=== PATIENT | male | born 1955 | race Caucasian/White ===

== ENCOUNTER 2016-09-24 15:34 | Emergency (ER) | payer OTHER ==
[~2016-09-24] VITALS: Ht 182.9 cm; Wt 120.4 kg
[~2016-09-24 15:34] MED LIST: ADULT LOW DOSE81 M1 PO; CELEBREX200 MG PO; COZAAR100 MG PO; CRESTOR5 MG PO; IBUPROFEN400 MG PO; LOPID600 MG PO; NIASPAN500 MG PO; PERCOCET 5/31 TABLET PO; TRICOR145 MG PO; bp med
[2016-09-24] MEDS ORDERED: VIBRAMYCIN100 MG PO (16:23)
[2016-09-24] MEDS ORDERED: MOTRIN800 MG PO (16:23)
[2016-09-24] MEDS ORDERED: LEVAQUIN500 MG PO (16:25)
[2016-09-24 17:18] VITALS: BP 132/102
== END 2016-09-24 17:19 | disposition home or self-care (01) ==
LOC: EME 15:34
DX: S50.851A Superficial foreign body of right forearm, initial encounter (principal); W45.8XXA Other foreign body or object entering through skin, initial encounter; Y93.H9 Activity, other involving exterior property and land maintenance, building and construction; Z23 Encounter for immunization; I10 Essential (primary) hypertension; E11.9 Type 2 diabetes mellitus without complications
CPT/HCPCS: 73090; 99281; 99283

== ENCOUNTER 2017-08-25 17:20 | Emergency (ER) | payer OTHER ==
[~2017-08-25] VITALS: Ht 188 cm; Wt 119.1 kg
[~2017-08-25 17:20] MED LIST changes: +LEVAQUIN500 MG PO; +MOTRIN800 MG PO; +VIBRAMYCIN100 MG PO
[2017-08-25] MEDS ORDERED: AUGMENTIN875 MG PO (20:44)
[2017-08-25 21:18] VITALS: BP 154/101
== END 2017-08-25 21:19 | disposition home or self-care (01) ==
LOC: EXP 17:20 → EME 17:20 → EXP 21:19
PROC: 0HQGXZZ Repair Left Hand Skin, External Approach (ICD-10-PCS; principal; 2017-08-25)
DX: S61.213A Laceration without foreign body of left middle finger without damage to nail, initial encounter (principal); W54.0XXA Bitten by dog, initial encounter
CPT/HCPCS: 73130; 99281; 99285; S0020

== ENCOUNTER 2017-09-13 10:02 | Emergency (ER) | payer OTHER ==
[~2017-09-13] VITALS: Ht 182.9 cm; Wt 120.0 kg
[~2017-09-13 10:02] MED LIST changes: +AUGMENTIN875 MG PO
[2017-09-13 10:52] LABS: APPEARANCE CLEAR ((CLEAR)); BILIRUBIN NEGATIVE; BLOOD LARGE; COLOR YELLOW ((YELLOW)); GLUCOSE (STRIP) NEGATIVE; KETONES NEGATIVE; LEUKOCYTES NEGATIVE; NITRITE NEGATIVE; PROTEIN (STRIP) NEGATIVE; SPECIFIC GRAVITY 1.019 (1.000-1.030); UROBILINOGEN 0.2 MG/DL (0.2-1.0)
[2017-09-13 11:06] LABS: BACTERIA NONE SEEN /HPF; EPITHELIAL CELLS RARE /HPF; MUCUS NONE SEEN /LPF; UCUL ADDED? NO; WHITE BLOOD CELLS 0-5 /HPF (0-5)
[2017-09-13 11:10] LABS: HEMOGLOBIN 14.5 G/DL (12.5-16.6); MCH 30.8 PG (29.0-34.0); MCHC 36.3 G/DL (30.0-36.0); MCV 84.9 FL (86-99); PLATELET COUNT 215 K/uL (156-360); RBC DIS.WIDTH-CV 12.6 % (11.8-14.6); RBC DIS.WIDTH-SD 38.6 % (39-53); RED BLOOD COUNT 4.71 M/uL (4.00-5.50); WHITE BLOOD COUNT 8.8 K/uL (4.1-10.2)
[2017-09-13 11:21] LABS: CHLORIDE 109 mEq/L (99-109); POTASSIUM 3.9 mEq/L (3.7-5.4); SODIUM 138 mEq/L (136-147)
[2017-09-13 11:22] LABS: GLUCOSE 194 mg/dL (70-99)
[2017-09-13 11:26] LABS: GFR ESTIMATE (CALCULATED) > 59 mL/min/ (58.99-99999)
[2017-09-13 11:27] LABS: UREA NITROGEN (BUN) 17 mg/dL (9-23)
[2017-09-13] MEDS ORDERED: ZOFRAN ODT8 MG PO (15:02)
[2017-09-13] MEDS ORDERED: FLOMAX0.4 MG PO (15:02)
[2017-09-13] MEDS ORDERED: NORCO 5/3251 TABLET PO (15:02)
[2017-09-13 15:12] VITALS: BP 143/100
== END 2017-09-13 15:18 | disposition home or self-care (01) ==
LOC: EME 10:02
DX: N20.0 Calculus of kidney (principal); N13.30 Unspecified hydronephrosis; N50.812 Left testicular pain; K76.0 Fatty (change of) liver, not elsewhere classified; I10 Essential (primary) hypertension; E78.5 Hyperlipidemia, unspecified; Z79.82 Long term (current) use of aspirin
CPT/HCPCS: 74176; 80048; 81003; 85027; 99281; 99284; J1885

== ENCOUNTER 2017-10-13 17:47 | Inpatient (IN) | payer OTHER ==
[~2017-10-13] VITALS: Ht 182.9 cm; Wt 117.9 kg
[~2017-10-13 17:47] MED LIST changes: +FENOFIBRATE160 M1 PO; +FLOMAX0.4 MG PO; +NORCO 5/3251 TABLET PO; -TRICOR145 MG PO; +ZOFRAN ODT8 MG PO
[2017-10-13 19:05] LABS: HEMATOCRIT 39.7 % (38.0-50.0); HEMOGLOBIN 14.2 G/DL (12.5-16.6); MCH 30.6 PG (29.0-34.0); MCHC 35.8 G/DL (30.0-36.0); MCV 85.6 FL (86-99); PLATELET COUNT 242 K/uL (156-360); RBC DIS.WIDTH-CV 13.1 % (11.8-14.6); RBC DIS.WIDTH-SD 40.5 % (39-53); RED BLOOD COUNT 4.64 M/uL (4.00-5.50); WHITE BLOOD COUNT 12.4 K/uL (4.1-10.2)
[2017-10-13 19:18] LABS: ALBUMIN 4.7 g/dL (3.2-4.8); CHLORIDE 105 mEq/L (99-109); POTASSIUM 3.7 mEq/L (3.7-5.4); SODIUM 143 mEq/L (136-147)
[2017-10-13 19:21] LABS: GLUCOSE 181 mg/dL (70-99); TOTAL PROTEIN 7.8 g/dL (6.4-8.3)
[2017-10-13 19:23] LABS: TOTAL BILIRUBIN 0.8 mg/dL (0.0-1.0)
[2017-10-13 19:24] LABS: ALKALINE PHOSPHATASE 62 IU/L (3-129); CREATININE 1.5 mg/dL (0.6-1.3); GFR ESTIMATE (CALCULATED) 51 mL/min/ (58.99-99999)
[2017-10-13 19:25] LABS: UREA NITROGEN (BUN) 17 mg/dL (9-23)
[2017-10-13 19:26] LABS: AST (GOT) 20 IU/L (2-34)
[2017-10-13 19:27] LABS: ALT (GPT) 26 IU/L (3-49)
[2017-10-13 19:28] LABS: LIPASE 36 U/L (1.0-51.0)
[2017-10-13 19:40] LABS: APPEARANCE SL.HAZY ((CLEAR)); BILIRUBIN NEGATIVE; BLOOD MODERATE; COLOR YELLOW ((YELLOW)); GLUCOSE (STRIP) 50; KETONES NEGATIVE; LEUKOCYTES NEGATIVE; NITRITE NEGATIVE; PROTEIN (STRIP) 30; SPECIFIC GRAVITY 1.023 (1.000-1.030); UROBILINOGEN 0.2 MG/DL (0.2-1.0)
[2017-10-13 19:44] LABS: BACTERIA RARE /HPF; EPITHELIAL CELLS RARE /HPF; MUCUS TRACE /LPF; RED BLOOD CELLS TNTC /HPF (0-5); UCUL ADDED? YES; WHITE BLOOD CELLS 0-5 /HPF (0-5)
[2017-10-14] MEDS ORDERED: AMARYL4 MG PO (00:20)
[2017-10-14] MEDS ORDERED: JANUVIA100 MG PO (00:20)
[2017-10-14] MEDS ORDERED: ATORVASTATIN CA80 MG PO (00:21)
[2017-10-14] MEDS ORDERED: FLOMAX0.4 MG PO (00:27)
[2017-10-14 02:08] VITALS: BP 146/86
[2017-10-14 04:38] VITALS: BP 141/77
[2017-10-14 08:32] LABS: BASOPHIL (%) 0.4 % (0-1); BASOPHIL COUNT 0.1 K/uL (0-0.1); EOSINOPHIL (%) 1.1 % (0-5); EOSINOPHIL COUNT 0.1 K/uL (0-0.3); HEMATOCRIT 39.1 % (38.0-50.0); HEMOGLOBIN 13.2 G/DL (12.5-16.6); IMMATURE GRANULOCYTE (%) 0.3 % (0.0-0.7); LYMPHOCYTE (%) 20.5 % (15-42); LYMPHOCYTE COUNT 2.4 K/uL (1.0-2.8); MCH 29.5 PG (29.0-34.0); MCHC 33.8 G/DL (30.0-36.0); MCV 87.5 FL (86-99); MONOCYTE (%) 12.4 % (3-12); MONOCYTE COUNT 1.5 K/uL (0-0.8); NEUTROPHIL (%) 65.3 % (45-76); NEUTROPHIL COUNT 7.6 K/uL (1.8-6.4); PLATELET COUNT 202 K/uL (156-360); RBC DIS.WIDTH-CV 13.2 % (11.8-14.6); RBC DIS.WIDTH-SD 41.9 % (39-53); RED BLOOD COUNT 4.47 M/uL (4.00-5.50); WHITE BLOOD COUNT 11.7 K/uL (4.1-10.2)
[2017-10-14 08:43] VITALS: BP 130/76
[2017-10-14 08:55] LABS: CHLORIDE 109 MEQ/L (99-109); CREATININE 1.5 MG/DL (0.6-1.3); GFR ESTIMATE (CALCULATED) 51 mL/min/ (58.99-99999); GLUCOSE 166 mg/dL (70-99); POTASSIUM 3.8 MEQ/L (3.7-5.4); SODIUM 140 MEQ/L (136-147); UREA NITROGEN (BUN) 21 mg/dL (9-23)
[2017-10-14 21:00] VITALS: BP 134/99
[2017-10-15 05:54] LABS: CHLORIDE 105 MEQ/L (99-109); CREATININE 1.6 MG/DL (0.6-1.3); GFR ESTIMATE (CALCULATED) 47 mL/min/ (58.99-99999); GLUCOSE 149 mg/dL (70-99); POTASSIUM 4.2 MEQ/L (3.7-5.4); SODIUM 141 MEQ/L (136-147); UREA NITROGEN (BUN) 19 mg/dL (9-23)
[2017-10-15 07:47] VITALS: BP 134/77
[2017-10-15 15:26] VITALS: BP 124/80
[2017-10-15 19:12] VITALS: BP 137/86
[2017-10-15 23:56] VITALS: BP 122/78
[2017-10-16 11:44] LABS: CHLORIDE 103 MEQ/L (99-109); GFR ESTIMATE (CALCULATED) > 59 mL/min/ (58.99-99999); POTASSIUM 3.9 MEQ/L (3.7-5.4); SODIUM 138 MEQ/L (136-147); UREA NITROGEN (BUN) 14 mg/dL (9-23)
[2017-10-16 11:45] LABS: CREATININE 1.1 MG/DL (0.6-1.3); GLUCOSE 241 mg/dL (70-99)
== END 2017-10-16 13:30 | disposition home or self-care (01) | DRG 694 ==
LOC: EME 17:47 → EDOF 10-14 01:04 → ENRESERV 10-14 01:05 → 4SOUTH 10-14 01:52
PROVIDERS: Hospitalist; Internal Medicine; Nurse Practitioner Family; Physician Assistant; Physician Assistant Medical
PROC: 0T778DZ Dilation of Left Ureter with Intraluminal Device, Via Natural or Artificial Opening Endoscopic (ICD-10-PCS; principal; 2017-10-15)
DX: N20.2 Calculus of kidney with calculus of ureter (principal); N17.9 Acute kidney failure, unspecified; R09.02 Hypoxemia; I10 Essential (primary) hypertension; E78.5 Hyperlipidemia, unspecified; E11.9 Type 2 diabetes mellitus without complications; T42.75XA Adverse effect of unspecified antiepileptic and sedative-hypnotic drugs, initial encounter; Y92.230 Patient room in hospital as the place of occurrence of the external cause; Z87.442 Personal history of urinary calculi; Z79.84 Long term (current) use of oral hypoglycemic drugs; Z79.899 Other long term (current) drug therapy
CPT/HCPCS: 74176; 80048; 80053; 81003; 82948; 83690; 85025; 85027; 87086; 99281; 99285; C2625; J0692; J1170; J1815; J2405; J2765; J3010; J7030